=== PATIENT | female | born 1980 | race Caucasian/White ===

== ENCOUNTER 2019-08-02 22:01 | Inpatient (IN) ==
[2019-08-02] MEDS ORDERED: MULTI-VITAMIN INFUSION 10 ML, THIAMINE HCL 100 MG, FOLIC ACID 1 MG in SODIUM CHLORIDE 0... IV ONE (22:45)
[2019-08-02] MEDS ORDERED: LORazepam 2 MG/4 ML VIAL IV STA (22:45)
[2019-08-02 23:27] LABS: Basophils # (auto) 0.04 K/uL (0-0.2); Basophils % (auto) 0.2 %; Hematocrit (blood only) 43.8 % (37-47); Hemoglobin 15.1 g/dL (12.0-16.0); Immature Granulocytes # (auto) 0.57 K/uL (0.00-0.02); Immature Granulocytes % (auto) 2.7 %; Lymphocytes # (auto) 0.92 K/uL (1.2-3.4); Lymphocytes % (auto) 4.4 %; Mean Corpuscular Hemoglobin 36.8 pg (25-34); Mean Corpuscular Hgb Conc 34.5 g/dL (32-36); Mean Corpuscular Volume 106.8 fL (80-100); Mean Platelet Volume 9.4 fL (7.4-10.4); Monocytes # (auto) 1.07 K/uL (0.11-0.59); Monocytes % (auto) 5.1 %; Neutrophils # (auto) 18.44 K/uL (1.4-6.5); Neutrophils % (auto) 87.6 %; Platelet Count 300 K/uL (130-400); RDW Coefficient of Variation 14.4 % (11.5-14.5); RDW Standard Deviation 55.7 fL (36.4-46.3); White Blood Count 21.04 K/uL (4.8-10.8)
[2019-08-02 23:41] LABS: Partial Thromboplastin Ratio 0.9; Partial Thromboplastin Time 23.2 Seconds (21.0-31.0); Prothrombin Time 10.6 Seconds (9.0-12.0)
[2019-08-02 23:44] LABS: Albumin Level 3.2 gm/dl (3.4-5.0); BUN Creatinine Ratio 7.1 (10-20); Calcium 9.3 mg/dl (8.5-10.1); Creatinine Clr Calc Pharmacy 110.3 ml/min; Est GFR (African American) 102.2; Est GFR (Non-African American) 88.2; Magnesium 1.4 mg/dl (1.8-2.4); Potassium 3.6 mmol/L (3.5-5.1)
[2019-08-02 23:47] LABS: Albumin Globulin Ratio 0.6 (0.9-2); Bilirubin,Total 0.5 mg/dl (0.2-1); Globulin 5.7 gm/dl (2.5-4.0); Phosphorus 2.3 mg/dl (2.5-4.9); Total Protein 8.9 gm/dl (6.4-8.2)
--- NOTE | 2019-08-03 00:37 | Emergency Department Note ---
Entered by Linda Delgado acting as a scribe for History of Present Illness General Chief complaint: Seizure Stated complaint: SEIZURE Source: patient and family ( ) History of Present Illness Onset (ago): hour(s) (just prior to arrival) Location: head (general) Pain Consistency: + now resolved and + other (episode ) Maximum Pain Intensity: 0 Quality: + other (seizure) Associated symptoms: + headaches (base of head), + nausea/vomiting and + other (positive unresponsiveness; positive persistent foot tapping; positive convulsing; positive blood coming from mouth) Treatments prior to arrival: NSAID (ibuprofen ) The patient is a 39 year old female who presents to the Emergency Room with complaints of a now resolved episode of a seizure that occurred just prior to arrival, per the patient's . The patient states that she was sitting on the couch on her phone and watching television before this episode occurred. The patient's states that he went to pharmacy picking technician their son and when he came home the patient was on the floor by the couch and looked like she was asleep. The patient's states that he then tried to get the patient up off the floor and she was found to be unresponsive for over several minutes with her left foot repeatedly tapping. The patient's states that the patient's eyes then went up and to the right before she began "convulsing" from her torso up the rest of her body. The patient's then states that blood started to come out of the patient's mouth. The patient states that prior to this happening, just after getting home from work, she began to have a headache at the base of her head described as a pressure that she states is the worst headache she has ever had. The patient states that she had some nausea and vomiting due to this. She states that she took ibuprofen for her headache. The patient states that she had 1/2 of a bottle of tequila tonight, and states that she typically drinks about 2 glasses of wine each night. The patient states that she had a particularly stressful day at work today and this is why she drank more than usual. Home Medications Home Medications Medication Instructions Recorded Confirmed Type levothyroxine 200 mcg PO DAILY 08/02/19 08/02/19 History sertraline 100 mg PO DAILY 08/02/19 08/02/19 History Allergies Allergy/AdvReac Type Severity Reaction Status Date / Time No Known Allergies Allergy Unverified 08/02/19 23:11 Past Med/Surg History Medical History Hyperthyroidism Family History (Updated 08/03/19 @ 00:31 by Linda Delgado) Other No significant family history Social History Feels Safe at Home: Yes Smoking Status: Never smoker Review of Systems See HPI for pertinent positives & negatives. and A total of 10 systems reviewed and were otherwise negative Physical Exam Vital Signs Vital Signs - 24 hr 08/02/19 22:14 08/02/19 23:22 08/03/19 00:07 Temperature 36.8 C Temperature Source Oral Pulse Rate 119 H Pulse Rate [Apical] 108 H Pulse Rhythm Regular Pulse Strength Normal Respiratory Rate 16 20 Respiratory Depth Normal Blood Pressure 164/115 H Blood Pressure [Left Arm] 117/88 Blood Pressure Mean 131 Blood Pressure Mean [Left Arm] 97 Blood Pressure Position Lying Pulse Oximetry 94 96 96 Oxygen Delivery Method Room Air Room Air Room Air Sepsis Recent Fever Within 48 Hours No Sepsis New/Unexplained Change in Mental Status No Sepsis Action Taken by Nursing No Action Required Vital signs reviewed. Hypertensive General: Obese, tearful, anxious. Well-appearing 39 year old female, in no significant distress. HEENT: No scleral icterus, PERRLA, neck supple. Contusion/bite to the left lateral tongue. Dried blood on the left side of her face. Cardiovascular: Tachycardic rate and regular rhythm, no extra sounds. Pulmonary: Clear to auscultation bilaterally, normal work of breathing. Abdomen: Soft, nontender, nondistended, positive bowel sounds. Musculoskeletal: Atraumatic, no peripheral edema. Neurologic: Patient awake alert and oriented x 3, full strength in all 4 extremities. Cranial nerves 2 through 12 grossly intact. Skin: Warm, dry, no rash Course Course 2244: Past medical records reviewed. The patient was evaluated in room B6. A complete history and physical exam was performed. 6: I checked on and updated the patient and her on all results. 9: [facility] evaluation. Administered Medications Potassium Phosphate 15 mmol/ (Sodium Chloride) 255 mls @ 88 mls/hr IV ONE ONE Stop: 08/03/19 03:53 Last Admin: 08/03/19 00:58 Dose: 88 mls/hr Documented by: [id number] Discontinued Medications Lorazepam (Ativan) 2 mg in 4 mls @ 4 mls/min IV NOW STA Stop: 08/02/19 22:46 Last Admin: 08/02/19 23:18 Dose: 4 mls/min Documented by: [id number] Multivitamins 10 ml/ Thiamine HCl 100 mg/ Folic Acid 1 mg/Sodium Chloride 1,011.2 mls @ 1,011.2 mls/hr IV .Q1H ONE Stop: 08/02/19 23:44 Last Infusion: 08/03/19 01:05 Dose: 0 mls/hr Documented by: [id number] Admin: 08/02/19 23:18 Dose: 1,011.2 mls/hr Documented by: [id number] Magnesium Sulfate/Dextrose (Magnesium Sulfate / D5w) 1 gm in 100 mls @ 100 mls/hr IV Q1H STA Stop: 08/03/19 01:42 Last Admin: 08/03/19 00:58 Dose: 100 mls/hr Documented by: [id number] Medical Decision Making Differential Diagnosis Differential diagnosis includes etiologies such as infection, hypoglycemia, electrolyte abnormalities, cardiac sources, intracerebral event, trauma, toxicologic, neurologic, as well as others were entertained. Medical Records Attestation: I reviewed the patient's medical records. Home Medications Current Medication List: was personally reviewed by me Laboratory Data Attestation: I reviewed the patient's lab results. Result diagrams: 08/02/19 22:59 08/02/19 22:59 Lab Results 08/02/19 08/02/19 08/02/19 Range/Units 22:59 22:59 22:59 WBC 21.04 H (4.8-10.8) K/uL RBC 4.10 L (4.2-5.4) M/uL Hgb 15.1 (12.0-16.0) g/dL Hct 43.8 (37-47) % MCV 106.8 H (80-100) fL MCH 36.8 H (25-34) pg MCHC 34.5 (32-36) g/dL RDW Std Deviation 55.7 H (36.4-46.3) fL RDW Coeff of Jennifer 14.4 (11.5-14.5) % Plt Count 300 (130-400) K/uL MPV 9.4 (7.4-10.4) fL Immature Gran % (Auto) 2.7 % Neut % (Auto) 87.6 % Lymph % (Auto) 4.4 % [place] % (Auto) 5.1 % Eos % (Auto) 0.0 % Baso % (Auto) 0.2 % Immature Gran # (Auto) 0.57 H (0.00-0.02) K/uL Neut # (Auto) 18.44 H (1.4-6.5) K/uL Lymph # (Auto) 0.92 L (1.2-3.4) K/uL [place] # (Auto) 1.07 H (0.11-0.59) K/uL Eos # (Auto) 0.00 (0-0.5) K/uL Baso # (Auto) 0.04 (0-0.2) K/uL PT (9.0-12.0) Seconds INR (0.9-1.1) APTT (21.0-31.0) Seconds PTT Ratio Sodium 134 L (136-145) mmol/L Potassium 3.6 (3.5-5.1) mmol/L Chloride 101 (98-107) mmol/L Carbon Dioxide 19 L (21-32) mmol/L Anion Gap 15.0 H (3-11) BUN 6 L (7-18) mg/dl Creatinine 0.84 (0.6-1.2) mg/dl Est Cr Clr Drug Dosing 110.3 ml/min Est GFR ( Amer) 102.2 Est GFR (Non-Af Amer) 88.2 BUN/Creatinine Ratio 7.1 L (10-20) Glucose 198 H (70-99) mg/dl Lactate (0.4-2.0) mmol/L Calcium 9.3 (8.5-10.1) mg/dl Phosphorus 2.3 L (2.5-4.9) mg/dl Magnesium 1.4 L (1.8-2.4) mg/dl Total Bilirubin 0.5 (0.2-1) mg/dl AST 139 H (15-37) U/L ALT 129 H (12-78) U/L Alkaline Phosphatase 78 (45-117) U/L Total Protein 8.9 H (6.4-8.2) gm/dl Albumin 3.2 L (3.4-5.0) gm/dl Globulin 5.7 H (2.5-4.0) gm/dl Albumin/Globulin Ratio 0.6 L (0.9-2) Ethyl Alcohol mg/dL 4.0 H (0-3) mg/dl 08/02/19 08/02/19 Range/Units 22:59 23:06 WBC (4.8-10.8) K/uL RBC (4.2-5.4) M/uL Hgb (12.0-16.0) g/dL Hct (37-47) % MCV (80-100) fL MCH (25-34) pg MCHC (32-36) g/dL RDW Std Deviation (36.4-46.3) fL RDW Coeff of Jennifer (11.5-14.5) % Plt Count (130-400) K/uL MPV (7.4-10.4) fL Immature Gran % (Auto) % Neut % (Auto) % Lymph % (Auto) % [place] % (Auto) % Eos % (Auto) % Baso % (Auto) % Immature Gran # (Auto) (0.00-0.02) K/uL Neut # (Auto) (1.4-6.5) K/uL Lymph # (Auto) (1.2-3.4) K/uL [place] # (Auto) (0.11-0.59) K/uL Eos # (Auto) (0-0.5) K/uL Baso # (Auto) (0-0.2) K/uL PT 10.6 (9.0-12.0) Seconds INR 1.0 (0.9-1.1) APTT 23.2 (21.0-31.0) Seconds PTT Ratio 0.9 Sodium (136-145) mmol/L Potassium (3.5-5.1) mmol/L Chloride (98-107) mmol/L Carbon Dioxide (21-32) mmol/L Anion Gap (3-11) BUN (7-18) mg/dl Creatinine (0.6-1.2) mg/dl Est Cr Clr Drug Dosing ml/min Est GFR ( Amer) Est GFR (Non-Af Amer) BUN/Creatinine Ratio (10-20) Glucose (70-99) mg/dl Lactate 6.4 H* (0.4-2.0) mmol/L Calcium (8.5-10.1) mg/dl Phosphorus (2.5-4.9) mg/dl Magnesium (1.8-2.4) mg/dl Total Bilirubin (0.2-1) mg/dl AST (15-37) U/L ALT (12-78) U/L Alkaline Phosphatase (45-117) U/L Total Protein (6.4-8.2) gm/dl Albumin (3.4-5.0) gm/dl Globulin (2.5-4.0) gm/dl Albumin/Globulin Ratio (0.9-2) Ethyl Alcohol mg/dL (0-3) mg/dl Imaging Data Radiologist's Impression: Radiology results as stated below per my review and the radiologist's interpretation: CT HEAD: No acute intracranial process. Radiologist: Shobha Arevalo M.D. Study ready at 23:35 and initial results transmitted at 23:39 ECG Data Attestation: I personally reviewed and interpreted this ECG as follows: Indication: + other (seizure ) Rate (beats per minute): 118 Rhythm: + sinus tachycardia ECG Intervals/blocks: + Prolonged QT (456) ECG ST segments: + ST depression (anterolateral) ECG Findings: no PACs and no PVCs Comparison ECG Date: no prior available Blood Pressure Blood Pressure Findings: Normal blood pressure MDM Narrative This patient was evaluated and appeared to be in no significant distress. Physical examination reveals tachycardic and hypertensive patient who is tearful. IV access was obtained and laboratory work was drawn. Patient was hydrated with a banana bag and given 2 mg of IV Ativan as she is tachycardic and hypertensive. Patient does have a history of "about 3 glasses of wine a day" and states she was drinking tequila tonight, upwards of a half of a bottle. The patient's clinical presentation is consistent with an alcohol withdrawal type seizure with a tachycardia and hypertension however her blood alcohol level is 4. This does seem to be odd given her history of a large amount of tequila consumption tonight. Head CT was obtained and reveals no evidence of acute i ntracranial abnormality. Patient was reevaluated and was asleep. I did discuss the findings and plan with the patient's . Dr. Bear of the hospitalist service will evaluate the patient for further management. Impression & Plan Seizure, Withdrawal symptoms, alcohol Discharge Plan Visit Data *Final* Discharge Date/Time: 08/03/19 01:21 Chief Complaint: Seizure Stated Complaint: SEIZURE ED Provider: Anastacia Velez Discharge Problem: Seizure, Withdrawal symptoms, alcohol Patient Disposition: Admitted As Inpatient Discharge Instructions Interventions: ED Discharge Assessment Last Done: 08/03/19 01:21 Discharge Problem: Withdrawal symptoms, alcohol Qualifiers: Complication of substance-induced condition: with unspecified complication Qualified Code(s): F10.239 - Alcohol dependence with withdrawal, unspecified The scribe's documentation has been prepared under my direction and personally reviewed by me in its entirety. I confirm that the note above accurately reflects all work, treatment, procedures, and medical decision making performed by me.
[2019-08-03] MEDS ORDERED: POTASSIUM PHOS 3 MMOL/1 ML INFUSION IV STA (00:43)
[2019-08-03] MEDS ORDERED: MAGNESIUM SULFATE / D5W 1 GM/100 ML BAG IV STA (00:43)
[2019-08-03] MEDS ORDERED: MAGNESIUM SULFATE / D5W 1 GM/100 ML BAG IV ONE (01:00)
[2019-08-03] MEDS ORDERED: POTASSIUM PHOSPHATE 15 MMOL in SODIUM CHLORIDE 0.9% 250 ML IV ONE (01:00)
[2019-08-03] MEDS ORDERED: NITROGLYCERIN SL 0.4 MG/TAB TAB SL PRN (01:31)
[2019-08-03] MEDS ORDERED: LORazepam 1 MG/2 ML VIAL IV PRN (01:31)
[2019-08-03] MEDS ORDERED: ACETAMINOPHEN 325 MG TAB PO PRN (01:31)
[2019-08-03] MEDS ORDERED: ONDANSETRON INJ 2 MG/ML 2 ML VIAL IV PRN (01:31)
[2019-08-03] MEDS ORDERED: LORazepam 1.5 MG/3 ML VIAL IV PRN (01:31)
[2019-08-03] MEDS ORDERED: GABAPENTIN 1200MG ALCOHOL WITHDRAWAL LOAD PO STA (01:31)
[2019-08-03] MEDS ORDERED: GABAPENTIN 600 MG TAB PO ONE (02:00)
[2019-08-03] MEDS: SODIUM CHLORIDE 0.9% 1000ML 1,000 ML IV SCH ×3 (02:01→17:00)
[2019-08-03 02:34] LABS: Amphetamines+Metham, Urine Neg (Neg); Barbiturates, Urine Neg (Neg); Benzodiazepine, Urine Neg (Neg); Cocaine, Urine Neg (Neg); MDMA (Ecstacy), Urine Neg (Neg); Methadone, Urine Neg (Neg); Opiate, Urine Neg (Neg); Phencyclidine, Urine Neg (Neg)
--- NOTE | 2019-08-03 04:00 | History and Physical Report ---
DATE OF ADMISSION: 08/03/2019 CHIEF COMPLAINT: Seizures. HISTORY OF PRESENT ILLNESS: This is a 39-year-old female with past medical history significant for obesity, hypothyroidism, anxiety, presents with seizure episode. The patient had a seizure episode around 8:40 p.m., went to outside at 08:20. The patient says at around 08:40, she was trying to go to bathroom when she felt weakness in her legs and the next thing what happened she does not remember. Her came in, she was lying on the floor and she was unresponsive with vomitus around, her legs seemed to be weak and he saw some blood around the mouth and asked hir son to call EMS. When EMS came, she was still unresponsive and they put on IV line and when they were taking her to the ambulance, she woke up and she spoke some words, but the patient does not remember anything about it. She woke in ambulance later. In the ER, she received a dose of Ativan. Currently resting comfortably and hemodynamically stable. Able to give her history, in the room. The patient states she drinks 2 glasses of wine every day and she has been lot of stress at work lately today, she had some bad news and she thought she drank a little more than usual today and thinks she has a panic attack. She never had seizures in the past. She denies stopping drinking alcohol in the last few days. Actually, she says drank more today. Her alcohol level is only 4 in the ER. At the time of dinner, she had severe headache in the back of the head. She took some Tylenol and ibuprofen. At that time, she felt nauseous. Denies any dizziness. Currently, she has some blurred visions, but that has improved now. No earache, no runny nose, no sore throat, no cough, no difficulty swallowing. Appetite is okay. No chest pain, no shortness of breath. No recent fever or chills. She is feeling cold now. No abdominal pain. Had bit her lips and tounge. No Incontinence. Normal bowel and bladder movements. No hematuria, no burning micturition, no melena or hematochezia. No swelling in the legs, no rash. Otherwise, ambulates okay. ALLERGIES: No known drug allergies. PAST MEDICAL HISTORY: As mentioned above. PAST SURGICAL HISTORY: , colposcopy of cervix with biopsy, fluoro, cholecystogram of gallbladder with contrast just after . MEDICATIONS: She is on Synthroid 200 mcg daily and Zoloft 100 mg p.o. daily. FAMILY HISTORY: Significant for: Mother had breast cancer at age of 61. Father has heart problems. Sister has Mir's palsy. Paternal grandmother had breast cancer. Aunt has breast cancer. Paternal grandmother has diabetes. Maternal grandmother had heart problems. SOCIAL HISTORY: , lives with . Former smoker, quit in 2001, smoked half pack a day for 16 years. Alcohol, drinks 2 glasses of wine every day. No drug use. REVIEW OF SYMPTOMS: As per HPI. Rest of review of systems is negative. PHYSICAL EXAMINATION: GENERAL: The patient is alert and oriented, not in acute distress. The patient is obese. VITAL SIGNS: Temperature 36.8, pulse 108, respiratory rate 20, blood pressure 117/88, oxygen 96% room air. HEENT: No pallor, no icterus. Pupils equal, round, reactive to light. NECK: No JVD, no neck masses, no carotid bruits. CARDIOVASCULAR: S1, S2 heard, regular rate and rhythm, no murmur, no gallop. RESPIRATORY SYSTEM: Normal AP diameter. No accessory muscle use. No wheezing, no crackles. ABDOMEN: Soft, bowel sounds present, nontender. No distention. CENTRAL NERVOUS SYSTEM: Alert and oriented x3. Nonfocal. EXTREMITIES: No edema, no erythema. LABORATORY DATA: WBC 21, hemoglobin 15.1, hematocrit 43.8, platelets 300. PT 10.6, INR 1, APTT 23.2. Sodium 134, potassium 3.6, chloride 101, bicarbonate 19, anion gap 15, BUN 6, creatinine 0.8, serum glucose 198, lactate 6.4, calcium 9.3, phosphorus 2.3, magnesium 1.4, total bilirubin 0.5, AST 139, ALT 129, alkaline phosphatase 78. Ethyl alcohol 4. CT of the head, official reading pending. EKG: Sinus tachycardia at the rate of 118, no acute ST changes seen. ASSESSMENT AND PLAN: This is a 39-year-old female who presents with seizures. 1. Seizures, probably underlying seizure disorder, first episode, received 2 mg of IV Ativan in the ER. Currently resting comfortably and hemodynamically stable. She also drinks 2 glasses of wine every day. She says she drank it more today because of some stress at work. She thinks that this happened because of panic attack. She denies stopping drinking alcohol for the last few days and actually drank more today.. Alcohol was 4 in the ER. Questionable alcohol withdrawal seizures. We will get an EEG. We will put her on alcohol withdrawal protocol with gabapentin, IV Ativan p.r.n.,for breakthrough seizures/withdrawal and consult neurology in a.m. Follow the official report of CAT scan. 2. Elevated lactic acid, probably secondary to seizure, but no signs of infection. Leukocytosis is probably secondary to seizure episode. We will follow the repeat lactic acid. Follow the chest x-ray for an aspiration. If the patient develops fever or any other signs of sepsis, we will start her on antibiotics. 3. Hyperglycemia. No history of diabetes. The patient has a history of obesity. We will follow HbA1c level in a.m. Currently, placed on clear-liquid diet. 4.Elevated transaminitis, possibly from fatty liver, alcoholism. We will follow repeat labs in a.m. If any concern, we will get an ultrasound. 5. Electrolyte abnormalities. Magnesium 1.4, phosphorus 2.3. We will replace. Follow the repeat labs. 6. Hypothyroidism. Continue Synthroid. 7. Depression. Continue Zoloft. 8. Deep venous thrombosis prophylaxis, sequential compression devices for now. 9. Disposition: Closely monitor in the tele floor. Level 1 full code. MTDD
[2019-08-03 05:36] LABS: Basophils # (auto) 0.05 K/uL (0-0.2); Basophils % (auto) 0.3 %; Eosinophils # (auto) 0.03 K/uL (0-0.5); Eosinophils % (auto) 0.2 %; Hematocrit (blood only) 39.7 % (37-47); Hemoglobin 13.8 g/dL (12.0-16.0); Immature Granulocytes # (auto) 0.27 K/uL (0.00-0.02); Immature Granulocytes % (auto) 1.4 %; Lymphocytes # (auto) 2.48 K/uL (1.2-3.4); Mean Corpuscular Hemoglobin 36.8 pg (25-34); Mean Corpuscular Hgb Conc 34.8 g/dL (32-36); Mean Corpuscular Volume 105.9 fL (80-100); Mean Platelet Volume 8.9 fL (7.4-10.4); Monocytes # (auto) 1.37 K/uL (0.11-0.59); Monocytes % (auto) 7.2 %; Neutrophils # (auto) 14.85 K/uL (1.4-6.5); Neutrophils % (auto) 77.9 %; Platelet Count 311 K/uL (130-400); RDW Coefficient of Variation 14.3 % (11.5-14.5); RDW Standard Deviation 55.9 fL (36.4-46.3); Red Blood Count 3.75 M/uL (4.2-5.4); White Blood Count 19.05 K/uL (4.8-10.8)
[2019-08-03 05:52] LABS: BUN Creatinine Ratio 8.1 (10-20); Bilirubin Direct 0.3 mg/dl (0-0.2); Calcium 8.2 mg/dl (8.5-10.1); Creatinine Clr Calc Pharmacy 143.5 ml/min; Est GFR (African American) 130.5; Est GFR (Non-African American) 112.6; Magnesium 2.2 mg/dl (1.8-2.4); Potassium 3.7 mmol/L (3.5-5.1)
[2019-08-03 05:57] LABS: Bilirubin,Total 0.8 mg/dl (0.2-1); Phosphorus 3.6 mg/dl (2.5-4.9); Total Protein 7.6 gm/dl (6.4-8.2)
[2019-08-03 06:21] LABS: Estimated Average Glucose 108 mg/dl; Hemoglobin A1C 5.4 % (4.5-5.6)
--- NOTE | 2019-08-03 06:21 | CT Scan Report ---
CT head/brain wo con CT DOSE: 537.48 mGy.cm HISTORY: Seizure. Headache. Mental status change. SZ TECHNIQUE: Multiaxial CT images of the head were performed without the use of intravenous contrast. A dose lowering technique was utilized adhering to the principles of ALARA. Comparison: None. Findings: Moderate sclerosis right mastoid air cells. Remaining sinuses appear clear. The calvarium a nd skull base are intact. The ventricles and sulci are within normal limits. There is no mass, hemato ma, midline shift, or acute infarct. Impression: No acute intracranial abnormality. The above report was generated using voice recognition software. It may contain grammatical, syntax or spelling errors. Electronically signed by: Max Norwood M.D. 08/03/2019 6:19 AM
[2019-08-03] MEDS: LEVOTHYROXINE SODIUM 200 MCG TABLET PO SCH (06:23)
--- NOTE | 2019-08-03 07:05 | XRay Report ---
SINGLE VIEW CHEST CLINICAL HISTORY: Aspiration. Seizure. FINDINGS: An AP, portable, upright chest radiograph is obtained. No prior studies are available for c omparison at the time of dictation. The examination is degraded by portable technique and patient rot ation. The cardiomediastinal silhouette is unremarkable. The lungs and pleural spaces are clear. No pneumothorax is seen. The bony thorax is grossly intact. IMPRESSION: No active disease in the chest. Electronically signed by: Garett Neves M.D. 08/03/2019 7:04 AM
[2019-08-03] MEDS: CEROVITE ADV FORMULA TAB PO SCH (08:03)
[2019-08-03] MEDS: GABAPENTIN 600 MG TAB PO SCH ×3 (08:03→21:22)
[2019-08-03] MEDS: SERTRALINE HCL 100 MG TABLET PO SCH (08:04)
[2019-08-03 08:25] LABS: Folate (Folic Acid) 3.83 ng/ml (>5.38)
--- NOTE | 2019-08-03 14:15 | Electroencephalogram ---
EEG Procedure Note Date of Service August 03, 2019 Start / End Times Start Time: 900 End Time: 920 Referring Physician PalDr. Bear History Possible seizure versus convulsive syncope Home Medication List Home Medications Medication Instructions Recorded Confirmed Type levothyroxine 200 mcg PO DAILY 08/02/19 08/02/19 History sertraline 100 mg PO DAILY 08/02/19 08/02/19 History Inpatient Medication List Sodium Chloride (Nss 1000ml) 1,000 mls @ 125 mls/hr IV .Q8H CARLOS Stop: 09/02/19 01:30 Last Admin: 08/03/19 08:59 Dose: 125 mls/hr Documented by: [id number] Infusion: 08/03/19 08:59 Dose: 125 mls/hr Documented by: [id number] Infusion: 08/03/19 08:59 Dose: 125 mls/hr Documented by: [id number] Admin: 08/03/19 02:01 Dose: 125 mls/hr Documented by: [id number] Levothyroxine Sodium (Synthroid) 200 [facility]cg [facility]ILYBB [facility] Stop: 09/02/19 06:29 Last Admin: 08/03/19 06:23 Dose: 200 mcg Documented by: [id number] Multivitamins/Minerals (Multivitamin W/ Minerals Tab) 1 tab PO QAM CARLOS Stop: 09/02/19 08:59 Last Admin: 08/03/19 08:03 Dose: 1 tab Documented by: [id number] Sertraline HCl (Zoloft) 100 mg PO DAILY CARLOS Stop: 09/02/19 08:59 Last Admin: 08/03/19 08:04 Dose: 100 mg Documented by: [id number] Discontinued Medications Gabapentin (Neurontin) 1,200 mg PO TODAY@0200 ONE Stop: 08/03/19 02:01 Last Admin: 08/03/19 02:03 Dose: 1,200 mg Documented by: [id number] Gabapentin (Neurontin) 600 mg PO Q6H CARLOS Stop: 08/03/19 14:01 Last Admin: 08/03/19 13:24 Dose: 600 mg Documented by: [id number] Admin: 08/03/19 08:03 Dose: 600 mg Documented by: [id number] Lorazepam (Ativan) 2 mg in 4 mls @ 4 mls/min IV NOW STA Stop: 08/02/19 22:46 Last Admin: 08/02/19 23:18 Dose: 4 mls/min Documented by: [id number] Multivitamins 10 ml/ Thiamine HCl 100 mg/ Folic Acid 1 mg/Sodium Chloride 1,011.2 mls @ 1,011.2 mls/hr IV .Q1H ONE Stop: 08/02/19 23:44 Last Infusion: 08/03/19 01:05 Dose: 0 mls/hr Documented by: [id number] Admin: 08/02/19 23:18 Dose: 1,011.2 mls/hr Documented by: [id number] Magnesium Sulfate/Dextrose (Magnesium Sulfate / D5w) 1 gm in 100 mls @ 100 mls/hr IV Q1H STA Stop: 08/03/19 01:42 Last Infusion: 08/03/19 02:05 Dose: 0 mls/hr Documented by: [id number] Admin: 08/03/19 00:58 Dose: 100 mls/hr Documented by: [id number] Potassium Phosphate 15 mmol/ (Sodium Chloride) 255 mls @ 88 mls/hr IV ONE ONE Stop: 08/03/19 03:53 Last Infusion: 08/03/19 04:12 Dose: 0 mls/hr Documented by: [id number] Admin: 08/03/19 00:58 Dose: 88 mls/hr Documented by: [id number] Magnesium Sulfate/Dextrose (Magnesium Sulfate / D5w) 1 gm in 100 mls @ 100 mls/hr IV ONE ONE Stop: 08/03/19 01:59 Last Infusion: 08/03/19 03:09 Dose: 0 mls/hr Documented by: [id number] Admin: 08/03/19 02:02 Dose: 100 mls/hr Documented by: [id number] Description This is a 21 electrode EEG with a single channel dedicated to limited EKG. The electrodes were placed in accordance with the International 10-20 system. This EEG was done as a bedside recording and is of excellent technical quality with few or no muscle movement artifacts. Photic stimulation was performed. Drowsiness and light sleep are not obtained. Under these conditions there is evidence for normal-appearing background rhythm in the alpha range of up to 9 to 10 Hz maximum frequency of up to 20 V maximum amplitude. This activity is a somewhat lower voltage than expected. Theta activity also relatively low voltage is seen over the central regions in a symmetrical fashion. Beta activity seen bifrontally. Photic stimulation provokes a modest driving response without any photo myogenic a photoparoxysmal component No time during the waking tracing is or evidence for potentially epileptogenic activity Interpretation This is a normal EEG during wakefulness Clinical Correlation This is a normal EEG without evidence for focal or generalized encephalopathy and without evidence for potentially epileptogenic activity but the absence of the latter does not exclude a seizure disorder and clinical correlation is required. Pedro Newman MD
--- NOTE | 2019-08-03 14:32 | Neurology Consultation ---
Date of Consultation August 03, 2019 Assessment & Plan (1) Seizure: 1. CT head- no acute findings 2. MRI with and without r/o lesion, abnormalities- ordered 3. continue Keppra 500 mg q 12 hours for now 4. no driving for 6 months state law, no heights, swimming or bathing alone 5. sleep deprived and increase anxiety at work 6. EEG- no seizure focus noted Supervising Physician Co-Signing Physician Notes I have seen and discussed above patient with Dr Pedro Newman, neurology I have seen Lissa today reviewed her history reviewed the above recommendations with Saba Mast PA-C and agree that she presented with a seizure preceded by focal sensory phenomenon involving the left arm lasting perhaps several minutes before the onset of what was probably secondary generalized event. She has no recall of the actual seizures and her next clear memory is of waking up in the ambulance in a confused state Imaging studies have not shown anything but an MRI is obviously something we need to get here to exclude a low-grade glioma or other process involving the right hemisphere. She is really had no recent infectious symptoms no headaches so I do not think this is going to be an encephalitis and my primary fear is this is a glioma of low to moderate grade if we find a cause of all. 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 she was trying to go to bathroom when she felt weakness in her legs and the next thing what happened she does not remember but when her came in she was on the floor and vomit around her. She also had some blood around her mouth. EMS was called and they brought her to the ED. She drinks 2 glasses of wine every day and under alot of stress at work. She also received some bad news at work. She has no history of seizures, no febrile seizures as a baby. Her maternal Aunt has seizure and had a seizure resection at one point. She did have a severe headache prior to the seizure and took some tylenol. she also had some nausea. she denies any sudden weight gain, vision changes, swallowing issues, bowel or bladder issues, N, V, one sided weakness numbness tingling. She does say she has been drinking alot of water and can't get enough to drink Allergies Allergy/AdvReac Type Severity Reaction Status Date / Time No Known Allergies Allergy Unverified 08/02/19 23:11 Home Medications Home Medications Medication Instructions Recorded Confirmed Type levothyroxine 200 mcg PO DAILY 08/02/19 08/02/19 History sertraline 100 mg PO DAILY 08/02/19 08/02/19 History Patient History Medical History Hyperthyroidism Family History (Updated 08/03/19 @ 00:31 by Linda Delgado) Other No significant family history Social History Preferred Language: Bahamian Communication Ability: Effective Pole Cutter Required: No Beliefs That Will Affect Care: None Current Living Situation: Family Other Information That Helps Us Care for You: No Feels Safe at Home: Yes Safety Concerns: Feels Safe At This Time Smoking Status: Unknown if ever smoked Hx Alcohol Use: Yes Alcohol type: wine and hard liquor Hx Substance Use: No Physical Exam Physical Exam: Physical Exam: Constitutional: appearance over nourished, healthy Ears, Nose, Mouth and Throat: mucous membranes moist, no injection and skin normal, eyes normal Cardiovascular: normal S-1 and S-2 and regular rate and rhythm Respiratory: clear to auscultation (CTA) and no rales, rhonchi or wheeze Musculoskeletal: no peripheral edema and good distal pulses Skin: no stigmata of neurocutaneous disease noted and normal and intact Eyes: extraocular muscles intact (EOMI) and pupils equal, round and reactive to light (PERRL) NEUROLOGIC EXAMINATION: Mental status: Alert and interactive Oriented to full date and location Oriented to person Speech fluent with no evidence of aphasia Cranial Nerves smile eye brow raise symmetric Reflexes: Deep tendon reflexes were symmetrical and graded 2/5. Sensory: no sensory light cool touch, vibration Coordination: finger to nose, rapid hand movement, heel to bermudez bilaterally intact Gait/Stance: Posture normal sitting up in bed Motor: Negative for pronator drift of out stretched arms with eyes closed. Strength: hand slide developer biceps triceps deltoids 5/5 bilaterally, hip flex patellar/plantar flex ext 5/5 Results & Data Vital Signs (Past 12 Hours) Vital Signs Temp Pulse Resp BP Pulse Ox 08/03/19 12:40 108 H 29 H 95 08/03/19 12:35 127 H 22 94 08/03/19 12:20 103 H 21 95 08/03/19 12:10 102 H 28 H 95 08/03/19 12:00 98 H 24 94 08/03/19 11:50 105 H 25 H 95 08/03/19 11:40 103 H 22 95 08/03/19 11:30 101 H 27 H 95 08/03/19 11:20 97 H 24 94 08/03/19 11:10 99 H 30 H 93 08/03/19 11:00 109 H 23 95 08/03/19 10:50 112 H 23 96 08/03/19 10:40 107 H 23 95 08/03/19 10:30 97 H 22 92 08/03/19 10:20 97 H 22 92 08/03/19 10:10 99 H 22 92 08/03/19 10:01 99 H 26 H 92 08/03/19 10:00 102 H 20 120/99 93 08/03/19 09:50 105 H 19 94 08/03/19 09:40 108 H 21 95 08/03/19 09:30 108 H 30 H 94 08/03/19 09:20 99 H 24 92 08/03/19 09:10 104 H 21 93 08/03/19 09:01 102 H 24 94 08/03/19 09:00 103 H 28 H 128/93 94 08/03/19 08:01 100 H 21 94 08/03/19 08:00 37.0 C 108 H 27 H 133/96 95 08/03/19 07:00 99 H 21 116/80 93 08/03/19 06:45 96 H 23 92 08/03/19 06:10 96 H 21 92 08/03/19 06:00 96 H 25 H 139/105 H 93 08/03/19 05:00 36.7 C 97 H 21 126/90 93 08/03/19 04:44 100 H 19 122/76 95 08/03/19 04:00 100 H 20 123/84 92 08/03/19 03:54 100 H 08/03/19 03:00 97 H 22 113/87 92 Laboratory Results Abnormal lab results 08/02/19 08/02/19 08/02/19 Range/Units 22:59 22:59 22:59 WBC 21.04 H (4.8-10.8) K/uL RBC 4.10 L (4.2-5.4) M/uL MCV 106.8 H (80-100) fL MCH 36.8 H (25-34) pg RDW Std Deviation 55.7 H (36.4-46.3) fL Immature Gran # (Auto) 0.57 H (0.00-0.02) K/uL Neut # (Auto) 18.44 H (1.4-6.5) K/uL Lymph # (Auto) 0.92 L (1.2-3.4) K/uL Caroline # (Auto) 1.07 H (0.11-0.59) K/uL Sodium 134 L (136-145) mmol/L Carbon Dioxide 19 L (21-32) mmol/L Anion Gap 15.0 H (3-11) BUN 6 L (7-18) mg/dl BUN/Creatinine Ratio 7.1 L (10-20) Glucose 198 H (70-99) mg/dl POC Glucose (70-99) Lactate (0.4-2.0) mmol/L Calcium (8.5-10.1) mg/dl Phosphorus 2.3 L (2.5-4.9) mg/dl Magnesium 1.4 L (1.8-2.4) mg/dl Direct Bilirubin (0-0.2) mg/dl AST 139 H (15-37) U/L ALT 129 H (12-78) U/L Total Protein 8.9 H (6.4-8.2) gm/dl Albumin 3.2 L (3.4-5.0) gm/dl Globulin 5.7 H (2.5-4.0) gm/dl Albumin/Globulin Ratio 0.6 L (0.9-2) Folate (>5.38) ng/ml Ethyl Alcohol mg/dL 4.0 H (0-3) mg/dl 08/02/19 08/03/19 08/03/19 Range/Units 23:06 02:10 05:20 WBC (4.8-10.8) K/uL RBC (4.2-5.4) M/uL MCV (80-100) fL MCH (25-34) pg RDW Std Deviation (36.4-46.3) fL Immature Gran # (Auto) (0.00-0.02) K/uL Neut # (Auto) (1.4-6.5) K/uL Lymph # (Auto) (1.2-3.4) K/uL Caroline # (Auto) (0.11-0.59) K/uL Sodium (136-145) mmol/L Carbon Dioxide (21-32) mmol/L Anion Gap (3-11) BUN (7-18) mg/dl BUN/Creatinine Ratio (10-20) Glucose (70-99) mg/dl POC Glucose 124 H (70-99) Lactate 6.4 H* 2.2 H* (0.4-2.0) mmol/L Calcium (8.5-10.1) mg/dl Phosphorus (2.5-4.9) mg/dl Magnesium (1.8-2.4) mg/dl Direct Bilirubin (0-0.2) mg/dl AST (15-37) U/L ALT (12-78) U/L Total Protein (6.4-8.2) gm/dl Albumin (3.4-5.0) gm/dl Globulin (2.5-4.0) gm/dl Albumin/Globulin Ratio (0.9-2) Folate (>5.38) ng/ml Ethyl Alcohol mg/dL (0-3) mg/dl 08/03/19 08/03/19 08/03/19 Range/Units 05:20 05:20 05:20 WBC 19.05 H (4.8-10.8) K/uL RBC 3.75 L (4.2-5.4) M/uL MCV 105.9 H (80-100) fL MCH 36.8 H (25-34) pg RDW Std Deviation 55.9 H (36.4-46.3) fL Immature Gran # (Auto) 0.27 H (0.00-0.02) K/uL Neut # (Auto) 14.85 H (1.4-6.5) K/uL Lymph # (Auto) (1.2-3.4) K/uL Caroline # (Auto) 1.37 H (0.11-0.59) K/uL Sodium (136-145) mmol/L Carbon Dioxide (21-32) mmol/L Anion Gap (3-11) BUN 5 L (7-18) mg/dl BUN/Creatinine Ratio 8.1 L (10-20) Glucose 103 H (70-99) mg/dl POC Glucose (70-99) Lactate (0.4-2.0) mmol/L Calcium 8.2 L (8.5-10.1) mg/dl Phosphorus (2.5-4.9) mg/dl Magnesium (1.8-2.4) mg/dl Direct Bilirubin 0.3 H (0-0.2) mg/dl AST 99 H (15-37) U/L ALT 103 H (12-78) U/L Total Protein (6.4-8.2) gm/dl Albumin 3.0 L (3.4-5.0) gm/dl Globulin (2.5-4.0) gm/dl Albumin/Globulin Ratio (0.9-2) Folate 3.83 L (>5.38) ng/ml Ethyl Alcohol mg/dL (0-3) mg/dl Diagnostic Findings CXR- No active disease in the chest. CT head-No acute intracranial abnormality. EEG- This is a normal EEG without evidence for focal or generalized encephalopathy and without evidence for potentially epileptogenic activity but the absence of the latter does not exclude a seizure disorder and clinical correlation is required.
--- NOTE | 2019-08-03 16:55 | Hospitalist Progress Note ---
Date of Service August 03, 2019 Assessment & Plan (1) Seizure: Has been under a lot of stress lately and lack of sleep and low magnesium CT chest showed no acute intracranial abnormality Alcohol level 4 Received Ativan in the ER Starting on Keppra 500mg BID Neurology on board EEG showed no seizure activity case discussed with Neuro recommended to continue Keppra 500mg BID Check MRI head w/without contrast Continue seizure precaution (no heights, swimming or bathing alone) Pt was advised no driving for at least 6months seizure free Continue monitor closely Elevated lactic acid Elevated WBC Possible related to seizure Doubt about infection since pt is afebrile CXR showed no active disease in the chest. Lactic acid back to normal Will hold on any abx Hyperglycemia. Hba1c 5.4 Possible due to stress/seizure Continue monitor Elevated transaminitis Possible related with alcohol LFT trending down Monitor Liver enzymes Electrolyte abnormalities Mg 1.4, phosphorus 2.3 Electrolytes replaced Monitor Hypothyroidism. Continue Synthroid. Depression. Continue Zoloft. DVT px on SCD CODE STATUS FULL CODE Disposition Will transfer to medical Subjective Pt was seen and examined Lying in bed with no distress Pt said that she feels a little better She said that headache slightly improves Denies any chest pain, palpitation, dizziness and SOB Physical Exam Physical Exam: General- No acute distress Head- atraumatic Eyes- PERRL, EOMI, ENT- oropharynx clear, no tongue swelling Neck- supple, no JVD Lungs- clear to auscultation Heart- regular rhythm; no murmur Abdomen- normal bowel sounds, soft, nontender Extremities- no calf tenderness Neuro- alert, oriented x 3; PERRL, EOMI; no facial palsy; no dysarthria Skin- warm & dry Results & Data Vital Signs (Past 12 Hours) Vital Signs Temp Pulse Resp BP Pulse Ox 08/03/19 12:40 108 H 29 H 95 08/03/19 12:35 127 H 22 94 08/03/19 12:20 103 H 21 95 08/03/19 12:10 102 H 28 H 95 08/03/19 12:00 98 H 24 94 08/03/19 11:50 105 H 25 H 95 08/03/19 11:40 103 H 22 95 08/03/19 11:30 101 H 27 H 95 08/03/19 11:20 97 H 24 94 08/03/19 11:10 99 H 30 H 93 08/03/19 11:00 109 H 23 95 08/03/19 10:50 112 H 23 96 08/03/19 10:40 107 H 23 95 08/03/19 10:30 97 H 22 92 08/03/19 10:20 97 H 22 92 08/03/19 10:10 99 H 22 92 08/03/19 10:01 99 H 26 H 92 08/03/19 10:00 102 H 20 120/99 93 08/03/19 09:50 105 H 19 94 08/03/19 09:40 108 H 21 95 08/03/19 09:30 108 H 30 H 94 08/03/19 09:20 99 H 24 92 08/03/19 09:10 104 H 21 93 08/03/19 09:01 102 H 24 94 08/03/19 09:00 103 H 28 H 128/93 94 08/03/19 08:01 100 H 21 94 08/03/19 08:00 37.0 C 108 H 27 H 133/96 95 08/03/19 07:00 99 H 21 116/80 93 08/03/19 06:45 96 H 23 92 08/03/19 06:10 96 H 21 92 08/03/19 06:00 96 H 25 H 139/105 H 93 08/03/19 05:00 36.7 C 97 H 21 126/90 93
[2019-08-03] MEDS ORDERED: GADOBUTROL 65ML VIAL IV PRN (22:06)
--- NOTE | 2019-08-03 22:41 | Magnetic Resonance Report ---
Brain MRI WITH AND WITHOUT CONTRAST HISTORY: Headache. new onset seizure TECHNIQUE: Multiplanar multisequence MRI of the brain was performed both before and after the intrave nous administration of contrast. COMPARISON STUDY: Head CT 08/02/2019. FINDINGS: No areas of restricted diffusion to suggest acute infarction. The midline structures are in tact. There is no mass or midline shift. Small retention cyst within the left maxillary sinus. Trace right mastoid effusion. The major vascular flow voids at the skull base are well-maintained. The vent ricles are normal in size. The temporal lobes are symmetric. Trace increased FLAIR signal within the subarachnoid space of the right anterior frontal lobe best seen on coronal images 5 through 7. No def inite abnormal enhancement. IMPRESSION: Trace increased FLAIR signal within the subarachnoid space of the right anterior frontal lobe. This s uggests a small amount of subarachnoid fluid, likely representing hemorrhage. This could be seen in t he setting of recent trauma. An infectious process is considered less likely but not entirely exclude d. Clinical question recommended. In addition, follow-up head CT in 6 to 12 hours recommended to ensu re stability. These findings were called/faxed to the referring physician following dictation. Electronically signed by: Daniel Eisenberg M.D. 08/03/2019 11:01 PM
[2019-08-04] MEDS: SODIUM CHLORIDE 0.9% 1000ML 1,000 ML IV SCH ×2 (03:05→18:04)
[2019-08-04] MEDS: GABAPENTIN 600 MG TAB PO SCH ×2 (05:47→13:55)
[2019-08-04] MEDS: LEVOTHYROXINE SODIUM 200 MCG TABLET PO SCH (05:48)
[2019-08-04 06:52] LABS: Hematocrit (blood only) 37.8 % (37-47); Hemoglobin 12.6 g/dL (12.0-16.0); Mean Corpuscular Hemoglobin 36.4 pg (25-34); Mean Corpuscular Hgb Conc 33.3 g/dL (32-36); Mean Corpuscular Volume 109.2 fL (80-100); Mean Platelet Volume 9.4 fL (7.4-10.4); Platelet Count 246 K/uL (130-400); Red Blood Count 3.46 M/uL (4.2-5.4)
[2019-08-04 07:27] LABS: Albumin Level 2.7 gm/dl (3.4-5.0); BUN Creatinine Ratio 7.7 (10-20); Calcium 7.9 mg/dl (8.5-10.1); Creatinine Clr Calc Pharmacy 134.8 ml/min; Est GFR (Non-African American) 110.4; Magnesium 1.9 mg/dl (1.8-2.4); Potassium 4.1 mmol/L (3.5-5.1)
[2019-08-04 07:29] LABS: Albumin Globulin Ratio 0.6 (0.9-2); Bilirubin,Total 1.1 mg/dl (0.2-1); Globulin 4.3 gm/dl (2.5-4.0)
--- NOTE | 2019-08-04 08:44 | CT Scan Report ---
CT head/brain wo con CLINICAL HISTORY: 39 years-old Female presenting with MRI FINDINGS, TRACE SUBARACHNOID HEMORRHAGE. TECHNIQUE: Multidetector CT imaging of the head was performed without the use of intravenous contrast . IV contrast: None. One or more dose lowering techniques were used consistent with the principles of ALARA (as low as reasonably achievable), including automatic exposure control, mA or kV adjustment t o individual patient size, and/or use of iterative reconstruction. COMPARISON: 08/02/2019 and brain MR from 08/03/2019. CT DOSE (mGy.cm): The estimated cumulative dose is 537.48 mGy.cm. FINDINGS: Figure Clerk topogram: Unremarkable. Ventricles and sulci normal in size. Trace right frontal subarachnoid hemorrhage is minimally apparen t and better appreciable on recent MRI. Brain parenchyma normal in appearance with preserved rodriguez-whi te differentiation. No acute territorial infarct. No mass effect or midline shift. No extra-axial flu id collection. Paranasal sinuses and mastoid air cells clear. Calvarium intact. IMPRESSION: 1. Trace right frontal subarachnoid hemorrhage is minimally apparent and better appreciable on recen t MRI. Electronically signed by: Andre Montes M.D. 08/04/2019 8:42 AM
[2019-08-04] MEDS: CEROVITE ADV FORMULA TAB PO SCH (08:56)
[2019-08-04] MEDS: SERTRALINE HCL 100 MG TABLET PO SCH (08:57)
[2019-08-04] MEDS: THIAMINE HCL 100 MG in SYRINGE 9 ML IV SCH (08:57)
[2019-08-04] MEDS: FOLIC ACID 1 MG in SYRINGE 9.8 ML IV SCH (08:57)
[2019-08-04 09:41] LABS: Lyme Ab IgG w/WB Rflx Negative (Negative); Lyme Ab IgM w/WB Rflx Negative (Negative)
--- NOTE | 2019-08-04 15:54 | Communication Note ---
Date of Service: August 04, 2019 Imaging studies have not revealed evidence for a small localized right frontal subarachnoid hemorrhage probably due to spontaneous leaking from the small vessel. This would be an unusual location for an aneurysmal bleed. There could be some vasculitis. I do not think this is an infectious process based on the imaging studies which are more consistent with blood but the process does explain her history which now indicates the onset of the most severe headache in her life about an hour before development of the left arm paresthesias and then the seizures We are going to proceed with a CT angiogram of the intracranial and extracranial vessels and a "vasculitis work-up" and we may end up doing a spinal fluid analysis but I like to defer on this for the present she is really had no fever sweats chills systemic issues skin rash joint pain pleurisy or any of the other typical manifestations of a systemic vasculitis and with exception of her increased stress levels and some increased ethanol consumption on the day this occurred her general overall health is been good We may never explain why this occurred. I certainly have seen a number of cases of unexplained superficial cortical subarachnoid hemorrhage over the years but it certainly was sufficient to explain her seizures and the duration of treatment because of this may actually be shorter than it would have been had we found no explanation for the seizures and may be limited to 6 months or a year of treatment depending on how things go We will check back tomorrow hopefully at a time when the angiographic studies will be available and some of the pending "vasculitis" evaluation has been completed. Fortunately there is no MRI evidence for a completed cortical CVA and the cause of the seizures would be subarachnoid blood with irritation of the superficial cortex rather than actual injury Her exam certainly does not reveal any evidence for cranial neuropathies, focal motor deficits, sensory loss, visual disturbances or indeed anything that would suggest a fixed central nervous system lesion at this time Pedro Newman MD
[2019-08-04] MEDS ORDERED: OPTIRAY 320 125ml IV PRN (16:06)
[2019-08-04] MEDS ORDERED: Nursing to Pharmacy Communication ONE (16:18)
--- NOTE | 2019-08-04 16:19 | CT Scan Report ---
NECK CTA HISTORY: Seizure. Subarachnoid hemorrhage. R/o cervical dissection TECHNIQUE: Multiaxial CT images of the neck were performed following the intravenous administration o f contrast to evaluate the major cervical vessels. Maximum intensity projection images were also obta ined. All measurements were calculated based on NASCET criteria. A dose lowering technique was utili zed adhering to the principles of ALARA. COMPARISON STUDY: None. FINDINGS: The aortic arch and proximal great vessels are widely patent. There is no significant sten osis, occlusion, or dissection identified within the bilateral common carotid, internal carotid, or v ertebral arteries. IMPRESSION: No significant stenosis, occlusion, or dissection identified within the carotid or vertebral arteries . Electronically signed by: Daniel Eisenberg M.D. 08/04/2019 4:18 PM
--- NOTE | 2019-08-04 16:29 | CT Scan Report ---
CT angio head w con HISTORY: Headache r/o aneursysm TECHNIQUE: Multiaxial CT angiography of the head was performed IV contrast: 100 cc Maximum intensi ty projection images were also obtained. A dose lowering technique was utilized adhering to the prin ciples of MINA. COMPARISON: None. FINDINGS: There is no mass, hematoma, midline shift, or acute infarct. 2 mm aneurysm origin right ant erior cerebral artery versus vascular tortuosity. The remaining intracranial vessels are unremarkable. No evidence for aneurysm or dissection. 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 Study is otherwise ne gative. The above report was generated using voice recognition software. It may contain grammatical, syntax or spelling errors. Electronically signed by: Max Norwood M.D. 08/04/2019 4:28 PM
--- NOTE | 2019-08-04 19:06 | Hospitalist Progress Note ---
Date of Service August 04, 2019 Assessment & Plan (1) Seizure: Has been under a lot of stress lately and lack of sleep and low magnesium CT chest showed no acute intracranial abnormality Brain MRI showed trace increased FLAIR signal within the subarachnoid space of the right anterior frontal lobe. This suggests a small amount of subarachnoid fluid, likely representing hemorrhage. 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 CTA neck showed no significant stenosis, occlusion, or dissection identified within the carotid or vertebral arteries. Repeat CT head done today showed no acute intracranial abnormality Alcohol level 4 on admission Received Ativan in the ER Continue Keppra 500mg BID Neurology on board EEG showed no seizure activity Vasculitis work up pending Continue seizure precaution (no heights, swimming or bathing alone) Pt was advised no driving for at least 6months seizure free Continue monitor closely Alcohol Abuse No sign of Alcohol withdrawn Continue Gabapentin alcohol protocol Continue folic acid and thiamine Elevated lactic acid Elevated WBC on admission, WBC normal Possible related to seizure Doubt about infection since pt is afebrile CXR showed no active disease in the chest. Lactic acid back to normal Continue to hold on any abx Hyperglycemia. Hba1c 5.4 Possible due to stress/seizure Continue monitor Elevated transaminitis Possible related with alcohol LFT trending down Monitor Liver enzymes Electrolyte abnormalities Mg 1.9 today Continue Monitor Hypothyroidism. Continue Synthroid. Depression. Continue Zoloft. DVT px on SCD CODE STATUS FULL CODE Disposition Will discharge home once medically stable Subjective Pt was seen and examined Lying in bed with no distress Pt said that she feels much better She said that headache improves Denies any chest pain, palpitation, dizziness and SOB Physical Exam Physical Exam: General- No acute distress Head- atraumatic Eyes- PERRL, EOMI, ENT- oropharynx clear, no tongue swelling Neck- supple, no JVD Lungs- clear to auscultation Heart- regular rhythm; no murmur Abdomen- normal bowel sounds, soft, nontender Extremities- no calf tenderness Neuro- alert, oriented x 3; PERRL, EOMI; no facial palsy; no dysarthria Skin- warm & dry Results & Data Vital Signs (Past 12 Hours) Vital Signs Temp Pulse Pulse Resp BP Pulse Ox 08/04/19 16:00 73 08/04/19 15:45 36.5 C 81 18 120/87 97 08/04/19 11:49 36.9 C 88 18 121/74 96 08/04/19 08:00 82 08/04/19 07:48 36.7 C 93 H 18 115/78 96
[2019-08-05] MEDS: GABAPENTIN 600 MG TAB PO SCH ×2 (01:28→14:29)
[2019-08-05] MEDS: LEVOTHYROXINE SODIUM 200 MCG TABLET PO SCH (06:39)
[2019-08-05] MEDS: THIAMINE HCL 100 MG in SYRINGE 9 ML IV SCH (08:28)
[2019-08-05] MEDS: FOLIC ACID 1 MG in SYRINGE 9.8 ML IV SCH (08:28)
[2019-08-05] MEDS: SERTRALINE HCL 100 MG TABLET PO SCH (08:29)
[2019-08-05] MEDS: CEROVITE ADV FORMULA TAB PO SCH (08:29)
--- NOTE | 2019-08-05 13:58 | Neurology Progress Note ---
Date of Service August 05, 2019 Assessment & Plan (1) Seizure: 1. CT head- no acute findings 2. MRI with and without r/o lesion, abnormalities- ordered 3. continue Keppra 500 mg q 12 hours for now 4. no driving for 6 months state law, no heights, swimming or bathing alone 5. sleep deprived and increase anxiety at work 6. EEG- no seizure focus noted 7. CTA head/neck- 2 mm ANR- follow up as outpatient with neurovascular follow up with neurology in 4-6 weeks Saba Mast PAC schedule Supervising Physician Co-Signing Physician Notes I have seen and discussed above patient with Dr Pedro Newman, neurology Lissa looks great today she is virtually asymptomatic no more seizures have occurred is no deficits her headache is gone and imaging studies etc. are now negative, very focal subarachnoid bleed in the right frontal area and unfortunately CT angiogram raises a question of a small artery aneurysm which I think is artifact and there is certainly no evidence for vasospasm, angiitis etc. 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 she was trying to go to bathroom when she felt weakness in her legs and the next thing what happened she does not remember but when her came in she was on the floor and vomit around her. She also had some blood around her mouth. EMS was called and they brought her to the ED. She drinks 2 glasses of wine every day and under alot of stress at work. She also received some bad news at work. She has no history of seizures, no febrile seizures as a baby. Her maternal Aunt has seizure and had a seizure resection at one point. She did have a severe headache prior to the seizure and took some tylenol. she also had some nausea. Today she states the headache is resolved. She states she is tolerating the Keppra well with no further episodes she denies any sudden weight gain, vision changes, swallowing issues, bowel or bladder issues, N, V, one sided weakness numbness tingling, staring spells, morning jerks. 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 Study is otherwise negative.
--- NOTE | 2019-08-05 15:40 | Hospitalist Progress Note ---
Date of Service August 05, 2019 Assessment & Plan (1) Seizure: Has been under a lot of stress lately and lack of sleep and low magnesium CT chest showed no acute intracranial abnormality Brain MRI showed trace increased FLAIR signal within the subarachnoid space of the right anterior frontal lobe. This suggests a small amount of subarachnoid fluid, likely representing hemorrhage. 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 CTA neck showed no significant stenosis, occlusion, or dissection identified within the carotid or vertebral arteries. Repeat CT head done today showed no acute intracranial abnormality Alcohol level 4 on admission Received Ativan in the ER Continue Keppra 500mg BID Neurology on board EEG showed no seizure activity Lyme titer and anti-CCP negative Vasculitis work up pending ( DUGLAS, C-ANCA,C3 and C4) Continue seizure precaution (no heights, swimming or bathing alone) Pt was advised no driving for at least 6months seizure free Follow up with neurosurgery Follow up with Neuro in 4-6 weeks Continue monitor closely Alcohol Abuse No sign of Alcohol withdrawn Continue Gabapentin alcohol protocol Continue folic acid and thiamine Elevated lactic acid Elevated WBC on admission, WBC normal Possible related to seizure Doubt about infection since pt is afebrile CXR showed no active disease in the chest. Lactic acid back to normal Continue to hold on any abx Hyperglycemia. Hba1c 5.4 Possible due to stress/seizure Continue monitor Elevated transaminitis Possible related with alcohol LFT trending down Monitor Liver enzymes Electrolyte abnormalities Mg stable Continue Monitor Hypothyroidism. Continue Synthroid. Depression. Continue Zoloft. DVT px on SCD CODE STATUS FULL CODE Disposition Will discharge home once medically stable Follow up with your Primary care provider Dr. Wheeler on 08/09 @ 11:05 AM Follow up with neurology in 4 to 6 weeks Follow up with neurosurgery Subjective Pt was seen and examined Sitting in bed with no distress Pt said that she feels fine Denies any seizure activity Denies any chest pain, palpitation, dizziness and SOB Physical Exam Physical Exam: General- No acute distress Head- atraumatic Eyes- PERRL, EOMI, ENT- oropharynx clear, no tongue swelling Neck- supple, no JVD Lungs- clear to auscultation Heart- regular rhythm; no murmur Abdomen- normal bowel sounds, soft, nontender Extremities- no calf tenderness Neuro- alert, oriented x 3; PERRL, EOMI; no facial palsy; no dysarthria Skin- warm & dry Results & Data Vital Signs (Past 12 Hours) Vital Signs Temp Pulse Pulse Pulse Resp BP BP 08/05/19 15:34 75 08/05/19 11:44 36.5 C 90 73 20 122/71 118/66 08/05/19 10:45 36.5 C 73 20 118/66 08/05/19 07:26 77 08/05/19 07:20 36.5 C 78 16 132/77 08/05/19 05:43 37 C 97 H 20 116/79 Pulse Ox 08/05/19 15:34 08/05/19 11:44 96 08/05/19 10:45 96 08/05/19 07:26 08/05/19 07:20 97 08/05/19 05:43 95
--- NOTE | 2019-08-06 01:01 | Discharge Summary ---
Date of Service August 05, 2019 Admission HPI Per Admitting Provider CHIEF COMPLAINT: Seizures. HISTORY OF PRESENT ILLNESS: This is a 39-year-old female with past medical history significant for obesity, hypothyroidism, anxiety, presents with seizure episode. The patient had a seizure episode around 8:40 p.m., went to outside at 08:20. The patient says at around 08:40, she was trying to go to bathroom when she felt weakness in her legs and the next thing what happened she does not remember. Her came in, she was lying on the floor and she was unresponsive with vomitus around, her legs seemed to be weak and he saw some blood around the mouth and asked hir son to call EMS. When EMS came, she was still unresponsive and they put on IV line and when they were taking her to the ambulance, she woke up and she spoke some words, but the patient does not remember anything about it. She woke in ambulance later. In the ER, she received a dose of Ativan. Currently resting comfortably and hemodynamically stable. Able to give her history, in the room. The patient states she drinks 2 glasses of wine every day and she has been lot of stress at work lately today, she had some bad news and she thought she drank a little more than usual today and thinks she has a panic attack. She never had seizures in the past. She denies stopping drinking alcohol in the last few days. Actually, she says drank more today. Her alcohol level is only 4 in the ER. At the time of dinner, she had severe headache in the back of the head. She took some Tylenol and ibuprofen. At that time, she felt nauseous. Denies any dizziness. Currently, she has some blurred visions, but that has improved now. No earache, no runny nose, no sore throat, no cough, no difficulty swallowing. Appetite is okay. No chest pain, no shortness of breath. No recent fever or chills. She is feeling cold now. No abdominal pain. Had bit her lips and tounge. No Incontinence. Normal bowel and bladder movements. No hematuria, no burning micturition, no melena or hematochezia. No swelling in the legs, no rash. Otherwise, ambulates okay. Admission Exam Per Admitting Provider GENERAL: The patient is alert and oriented, not in acute distress. The patient is obese. VITAL SIGNS: Temperature 36.8, pulse 108, respiratory rate 20, blood pressure 117/88, oxygen 96% room air. HEENT: No pallor, no icterus. Pupils equal, round, reactive to light. NECK: No JVD, no neck masses, no carotid bruits. CARDIOVASCULAR: S1, S2 heard, regular rate and rhythm, no murmur, no gallop. RESPIRATORY SYSTEM: Normal AP diameter. No accessory muscle use. No wheezing, no crackles. ABDOMEN: Soft, bowel sounds present, nontender. No distention. CENTRAL NERVOUS SYSTEM: Alert and oriented x3. Nonfocal. EXTREMITIES: No edema, no erythema. Principal Diagnosis Seizure Alcohol Abuse Elevated lactic acid Hyperglycemia. Elevated transaminitis Electrolyte abnormalities Hypothyroidism. Depression. Discharge Exam General- No acute distress Head- atraumatic Eyes- PERRL, EOMI, ENT- oropharynx clear, no tongue swelling Neck- supple, no JVD Lungs- clear to auscultation Heart- regular rhythm; no murmur Abdomen- normal bowel sounds, soft, nontender Extremities- no calf tenderness Neuro- alert, oriented x 3; PERRL, EOMI; no facial palsy; no dysarthria Skin- warm & dry Discharge Data Allergies Allergy/AdvReac Type Severity Reaction Status Date / Time No Known Allergies Allergy Unverified 08/02/19 23:11 Consultations 08/03/19 00:06 ED Decision to Admit Stat 08/03/19 01:31 Consult Case Management - Discharge Planning Routine 08/03/19 08:00 Consult Neurology Routine Ordered Studies 08/02/19 22:46 CT head/brain wo con Urgent 08/03/19 15:51 MR brain seizure wo/w con Routine 08/04/19 08:00 CT head/brain wo con Routine 08/04/19 08:46 CT angio head w con Routine CT angio neck with con Routine NECK CTA HISTORY: Seizure. Subarachnoid hemorrhage. R/o cervical dissection TECHNIQUE: Multiaxial CT images of the neck were performed following the intravenous administration of contrast to evaluate the major cervical vessels. Maximum intensity projection images were also obtained. All measurements were calculated based on NASCET criteria. A dose lowering technique was utilized adh ering to the principles of ALARA. COMPARISON STUDY: None. FINDINGS: The aortic arch and proximal great vessels are widely patent. There is no significant stenosis, occlusion, or dissection identified within the bilateral common carotid, internal carotid, or vertebral arteries. IMPRESSION: No significant stenosis, occlusion, or dissection identified within the carotid or vertebral arteries. Electronically signed by: Daniel Eisenberg M.D. 08/04/2019 4:18 PM Dictated: 08/04/191612 Transcribed: 08/04/191612 CT angio head w con HISTORY: Headache r/o aneursysm TECHNIQUE: Multiaxial CT angiography of the head was performed IV contrast: 100 cc Maximum intensity projection images were also obtained. A dose lowering technique was utilized adhering to the principles of ALARA. COMPARISON: None. FINDINGS: There is no mass, hematoma, midline shift, or acute infarct. 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 The remaining intracranial vessels are unremarkable. No evidence for aneurysm or dissection. 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 Study is otherwise negative. The above report was generated using voice recognition software. It may contain grammatical, syntax or spelling errors. Electronically signed by: Max Norwood M.D. 08/04/2019 4:28 PM Dictated: 08/04/191625 Transcribed: 08/04/191625 CT head/brain wo con CLINICAL HISTORY: 39 years-old Female presenting with MRI FINDINGS, TRACE SUBARACHNOID HEMORRHAGE. TECHNIQUE: Multidetector CT imaging of the head was performed without the use of intravenous contrast. IV contrast: None. One or more dose lowering techniques were used consistent with the principles of ALARA (as low as reasonably achie vable), including automatic exposure control, mA or kV adjustment to individual patient size, and/or use of iterative reconstruction. COMPARISON: 08/02/2019 and brain MR from 08/03/2019. CT DOSE (mGy.cm): The estimated cumulative dose is 537.48 mGy.cm. FINDINGS: Superintendent Production topogram: Unremarkable. Ventricles and sulci normal in size. Trace right frontal subarachnoid hemorrhage is minimally apparent and better appreciable on recent MRI. Brain parenchyma normal in appearance with preserved rodriguez-white differentiation. No acute territorial infarct. No mass effect or midline shift. No extra-axial fluid collection. Paranasal sinuses and mastoid air cells clear. Calvarium intact. IMPRESSION: 1. Trace right frontal subarachnoid hemorrhage is minimally apparent and better appreciable on recent MRI. Electronically signed by: Andre Montes M.D. 08/04/2019 8:42 AM Dictated: 08/04/19836 Transcribed: 08/04/19836 Brain MRI WITH AND WITHOUT CONTRAST HISTORY: Headache. new onset seizure TECHNIQUE: Multiplanar multisequence MRI of the brain was performed both before and after the intravenous administration of contrast. COMPARISON STUDY: Head CT 08/02/2019. FINDINGS: No areas of restricted diffusion to suggest acute infarction. The midline structures are intact. There is no mass or midline shift. Small retention cyst within the left maxillary sinus. Trace right mastoid effusion. The major vascular flow voids at the skull base are well-maintained. The ventricles are normal in size. The temporal lobes are symmetric. Trace increased FLAIR signal within the subarachnoid space of the right anterior frontal lobe best seen on coronal images 5 through 7. No definite abnormal enhancement. IMPRESSION: Trace increased FLAIR signal within the subarachnoid space of the right anterior frontal lobe. This suggests a small amount of subarachnoid fluid, likely representing hemorrhage. This could be seen in the setting of recent trauma. An infectious process is considered less likely but not entirely excluded. Clinical question recommended. In addition, follow-up head CT in 6 to 12 hours recommended to ensure stability. These findings were called/faxed to the referring physician following dictation. Electronically signed by: Daniel Eisenberg M.D. 08/03/2019 11:01 PM Dictated: 08/03/192227 Transcribed: 08/03/192238 SINGLE VIEW CHEST CLINICAL HISTORY: Aspiration. Seizure. FINDINGS: An AP, portable, upright chest radiograph is obtained. No prior studies are available for comparison at the time of dictation. The examination is degraded by portable technique and patient rotation. The cardiomediastinal silhouette is unremarkable. The lungs and pleural spaces are clear. No pneumothorax is seen. The bony thorax is grossly intact. IMPRESSION: No active disease in the chest. Electronically signed by: Garett Neves M.D. 08/03/2019 7:04 AM Dictated: 08/03/19702 Transcribed: 08/03/19702 CT head/brain wo con CT DOSE: 537.48 mGy.cm HISTORY: Seizure. Headache. Mental status change. SZ TECHNIQUE: Multiaxial CT images of the head were performed without the use of intravenous contrast. A dose lowering technique was utilized adhering to the principles of ALARA. Comparison: None. Findings: Moderate sclerosis right mastoid air cells. Remaining sinuses appear clear. The calvarium and skull base are intact. The ventricles and sulci are wi thin normal limits. There is no mass, hematoma, midline shift, or acute infarct. Impression: No acute intracranial abnormality. The above report was generated using voice recognition software. It may contain grammatical, syntax or spelling errors. Electronically signed by: Max Norwood M.D. 08/03/2019 6:19 AM Dictated: 08/03/19616 Transcribed: 08/03/19616 Hospital Course (1) Seizure: Has been under a lot of stress lately and lack of sleep and low magnesium CT chest showed no acute intracranial abnormality Brain MRI showed trace increased FLAIR signal within the subarachnoid space of the right anterior frontal lobe. This suggests a small amount of subarachnoid fluid, likely representing hemorrhage. 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 CTA neck showed no significant stenosis, occlusion, or dissection identified within the carotid or vertebral arteries. Repeat CT head done today showed no acute intracranial abnormality Alcohol level 4 on admission Received Ativan in the ER Continue Keppra 500mg BID Neurology on board EEG showed no seizure activity Lyme titer and anti-CCP negative Vasculitis work up pending ( DUGLAS, C-ANCA,C3 and C4) Continue seizure precaution (no heights, swimming or bathing alone) Pt was advised no driving for at least 6months seizure free Follow up with neurosurgery Follow up with Neuro in 4-6 weeks Continue monitor closely Alcohol Abuse No sign of Alcohol withdrawn Continue Gabapentin alcohol protocol Continue folic acid and thiamine Elevated lactic acid Elevated WBC on admission, WBC normal Possible related to seizure Doubt about infection since pt is afebrile CXR showed no active disease in the chest. Lactic acid back to normal Continue to hold on any abx Hyperglycemia. Hba1c 5.4 Possible due to stress/seizure Continue monitor Elevated transaminitis Possible related with alcohol LFT trending down Monitor Liver enzymes Electrolyte abnormalities Mg stable Continue Monitor Hypothyroidism. Continue Synthroid. Depression. Continue Zoloft. DVT px on SCD CODE STATUS FULL CODE Disposition Will discharge home once medically stable Follow up with your Primary care provider Dr. Wheeler on 08/09 @ 11:05 AM Follow up with neurology in 4 to 6 weeks Follow up with neurosurgery Total Time Total Time Spent Total Time Spent (In Minutes): 35 minutes Total Time Includes: Examination of the Patient, Discharge Planning, Medication Reconciliation, Communication With Other Providers and Other Discharge Plan Discharge Items Patient Disposition: Home - Self-Care Reason For Visit: SEIZURE Discharge Diagnosis: Seizure Alcohol Abuse Elevated lactic acid Hyperglycemia. Elevated transaminitis Electrolyte abnormalities Hypothyroidism. Depression. Activity: Resume your previous activity Non-emergency contact: Primary Care Provider and Neurologist Call non-emergency contact if: you have any medication questions Follow-up/Referrals: Trav Wheeler MD [Primary Care Provider] - Diet: Regular Addtl Attending Provider Instructions: Follow up with your Primary care provider Dr. Wheeler on 08/09 @ 11:05 AM Follow up with neurology Dr. Newman or Saba Mast PA-C in 4 to 6 weeks (office will call your with the appointment) Follow up with neurosurgery (Your provider will arrange for the referral ) Continue seizure precaution (such as no heights, swimming or bathing alone) No work around moving machine No high level activities Fall precaution Please no driving for at least 6 months seizure free Counseling on alcohol cessation Pending Studies at Discharge: Yes Studies:: Vasculitis work up pending ( DUGLAS, C-ANCA, C3 and C4) Stand-Alone Forms: My [facility] [place] Snap[place], Smoking Cessation Medications and DC Order Prescriptions: New levetiracetam [Keppra] 500 mg tablet 500 mg PO BID Qty: 60 RF: 0 Continued levothyroxine 200 mcg tablet 200 mcg PO DAILY RF: 0 sertraline 100 mg tablet 100 mg PO DAILY RF: 0 Discharge Orders: Discharge Order (Routine); Ordered 08/05/19 Ordered By: Sarah Saldana Admission Data Admit Date/Time: 08/03/19 00:42 Attending Provider: Sarah Saldana Admit Provider: William Bear Primary Care Provider: Trav Wheeler Other Providers: William Bear ; Saba Mast ; Pedro Newman ; Saba Cabral ; Job Prescott Other Interventions: Discharge Summary Assessment (RN) Last Done: 08/05/19 11:44 DC Date/Time DO NOT enter until pt leaves facility: 08/05/19 16:57
[2019-08-06] MEDS ORDERED: GABAPENTIN 600 MG TAB PO SCH (14:00)
[2019-08-08 22:59] LABS: ANCA Screen Negative (Negative); Anti Nuclear Antibody Screen NEGATIVE (NEGATIVE); Complement C3 139 MG/DL (83-193)
== END 2019-08-05 16:57 | disposition home or self-care (01) | DRG 101 ==
LOC: ED 22:01 → 1E 08-03 00:42 → 2E 08-03 17:51